=== PATIENT | male | born 1945 | race Caucasian/White ===

== ENCOUNTER 2017-09-25 12:55 | Inpatient (IN) | payer MEDICARE, MEDICAID ==
[~2017-09-25] VITALS: Ht 177.8 cm; Wt 106.3 kg
[~2017-09-25 12:55] MED LIST: HYDR-3240 PO; HYDR50TA3 PO; MULT-208 PO; PARO20TA98 PO; RISE150T3 PO
[2017-09-25] MEDS ORDERED: SODIUM CHLORIDE FLUSH 10ML SYR IVF ONE (13:30)
[2017-09-25] MEDS ORDERED: ATEN-104 PO (13:49)
[2017-09-25 14:00] LABS: BASOPHILS # (AUTO) 0.02 x10^3/uL (0-0.1); BASOPHILS % (AUTO) 0 % (0-1); EOSINOPHILS # (AUTO) 0.03 x10^3/uL (0-0.4); EOSINOPHILS % (AUTO) 0 % (1-7); LYMPHOCYTES # (AUTO) 0.42 x10^3/uL (1-3.4); LYMPHOCYTES % (AUTO) 4 % (22-44); MD NO; MEAN CORPUSCULAR HGB CONC 32.8 g/dL (33.2-36.2); MEAN CORPUSCULAR VOLUME 91.5 fL (81-97); MEAN PLATELET VOLUME 8.9 fL (7.4-10.4); MONOCYTES # (AUTO) 0.56 x10^3/uL (0.2-0.8); MONOCYTES % (AUTO) 6 % (2-9); NEUTROPHILS # (AUTO) 8.56 x10^3/uL (1.8-6.8); NEUTROPHILS % (AUTO) 89 % (42-75); PLATELET COUNT 196 x10^3/uL (130-400); RED BLOOD COUNT 4.78 x10^6/uL (4.38-5.82); RED CELL DISTRIBUTION WIDTH 15.3 % (9.4-14.8)
[2017-09-25] MEDS ORDERED: NITROGLYCERIN OINT 2%, 1GM TP ONE ×2 (14:00→15:21)
[2017-09-25 14:05] LABS: INTERNATIONAL NORMALIZED RATIO 1.16 (0.93-1.1); PROTHROMBIN TIME 11.9 Seconds (9.6-11.5)
[2017-09-25 14:10] LABS: ALANINE AMINOTRANSFERASE 18 U/L (12-78); ALBUMIN 3.8 g/dL (3.4-5.0); ANION GAP 8 mmol/L (5-15); CALCIUM 8.6 mg/dL (8.5-10.1); CHLORIDE 102 mmol/L (98-107); CREATININE 0.93 mg/dL (0.7-1.3)
[2017-09-25 14:14] LABS: ALKALINE PHOSPHATASE 95 U/L (45-117); BILIRUBIN,TOTAL 1.3 mg/dL (0.2-1.0); TOTAL PROTEIN 7.1 g/dL (6.4-8.2); TROPONIN I < 0.015 ng/mL (0.000-0.045)
[2017-09-25] MEDS ORDERED: FUROSEMIDE 20 MG/2 ML IV ONE (14:30)
[2017-09-25] MEDS ORDERED: FUROSEMIDE 20 MG/2 ML ONE (15:21)
[2017-09-25] MEDS ORDERED: LORazepam 2 MG/ML, 1ML ONE ×2 (15:38→22:12)
[2017-09-25] MEDS: LORazepam 2 MG/ML, 1ML IVPush PRN ×2 (15:43→22:18)
[2017-09-25] MEDS ORDERED: ONDANSETRON 2MG/ML, 2ML IVPush PRN (17:00)
[2017-09-25 19:17] LABS: TROPONIN I < 0.015 ng/mL (0.000-0.045)
[2017-09-25] MEDS ORDERED: ENOXAPARIN 40 MG/0.4 ML ONE (19:29)
[2017-09-25] MEDS ORDERED: PLEASE ENTER ALLERGIES MC SCH (19:30)
[2017-09-25] MEDS: ENOXAPARIN 40 MG/0.4 ML SQ SCH (19:40)
[2017-09-25] MEDS ORDERED: FUROSEMIDE 40 MG/4 ML ONE (22:12)
[2017-09-25] MEDS ORDERED: ACETAMINOPHEN 325 MG TABLET ONE (22:12)
[2017-09-25] MEDS: ACETAMINOPHEN 325 MG TABLET PO PRN (22:18)
[2017-09-25] MEDS: FUROSEMIDE 40 MG/4 ML IV SCH (22:18)
[2017-09-26 00:07] VITALS: BP 158/76
[2017-09-26 01:21] LABS: TROPONIN I < 0.015 ng/mL (0.000-0.045)
[2017-09-26 02:00] VITALS: BP 158/76
[2017-09-26] MEDS: FUROSEMIDE 40 MG/4 ML IV SCH ×4 (04:35→21:46)
[2017-09-26 07:39] VITALS: BP 128/65
[2017-09-26 07:47] LABS: ANION GAP 9 mmol/L (5-15); CALCIUM 8.8 mg/dL (8.5-10.1); CHLORIDE 100 mmol/L (98-107); CREATININE 0.96 mg/dL (0.7-1.3)
[2017-09-26 08:15] LABS: INTERNATIONAL NORMALIZED RATIO 1.19 (0.93-1.1); PROTHROMBIN TIME 12.2 Seconds (9.6-11.5)
[2017-09-26] MEDS ORDERED: LIDOCAINE 1%, 20ML ONE (08:16)
[2017-09-26] MEDS ORDERED: REGADENOSON 0.4 MG/5 ML SYRINGE ONE (08:57)
[2017-09-26] MEDS: ACETAMINOPHEN 325 MG TABLET PO PRN (11:23)
[2017-09-26] MEDS: PAROXETINE 20 MG TABLET PO SCH (11:23)
[2017-09-26 14:27] VITALS: BP 105/55
[2017-09-26] MEDS: ENOXAPARIN 40 MG/0.4 ML SQ SCH (16:01)
[2017-09-26 19:16] VITALS: BP 121/63
[2017-09-26] MEDS: MELATONIN 5 MG TABLET PO SCH (21:46)
[2017-09-27 01:19] VITALS: BP 129/68
[2017-09-27] MEDS: FUROSEMIDE 40 MG/4 ML IV SCH ×2 (04:52→11:57)
[2017-09-27 07:10] VITALS: BP 104/51
[2017-09-27 08:01] LABS: ANION GAP 7 mmol/L (5-15); CALCIUM 8.5 mg/dL (8.5-10.1); CHLORIDE 98 mmol/L (98-107); CREATININE 1.06 mg/dL (0.7-1.3)
[2017-09-27] MEDS: PAROXETINE 20 MG TABLET PO SCH (09:00)
[2017-09-27] MEDS: ENOXAPARIN 40 MG/0.4 ML SQ SCH (09:01)
[2017-09-27] MEDS: ACETAMINOPHEN 325 MG TABLET PO PRN ×2 (09:01→21:45)
[2017-09-27] MEDS ORDERED: MAGNESIUM OXIDE 400 MG TABLET PO ONE (09:30)
[2017-09-27 12:47] VITALS: BP 113/66
[2017-09-27 19:48] VITALS: BP 108/65
[2017-09-27] MEDS: MAGNESIUM OXIDE 400 MG TABLET PO SCH (21:45)
[2017-09-27] MEDS: MELATONIN 5 MG TABLET PO SCH (21:45)
[2017-09-28 01:42] VITALS: BP 108/70
[2017-09-28 07:19] VITALS: BP 121/66
[2017-09-28] MEDS: MAGNESIUM OXIDE 400 MG TABLET PO SCH (08:50)
[2017-09-28] MEDS: PAROXETINE 20 MG TABLET PO SCH (08:50)
[2017-09-28] MEDS ORDERED: FUROSEMIDE 40 MG/4 ML IV SCH (10:00)
[2017-09-28] MEDS: ACETAMINOPHEN 325 MG TABLET PO PRN (12:04)
[2017-09-28 12:17] VITALS: BP 118/69
[2017-09-28] MEDS ORDERED: FURO40TA6 PO (12:30)
[2017-09-28] MEDS ORDERED: ASPI-621 PO (13:01)
[2017-09-28] MEDS ORDERED: ACET325C PO (13:01)
[2017-09-28] MEDS: ENOXAPARIN 40 MG/0.4 ML SQ SCH (13:07)
== END 2017-09-28 18:00 | disposition home or self-care (01) | DRG 291 ==
LOC: ED 15:09 → EDIP 15:10 → ED 15:14 → 4WST 09-26 00:07
PROVIDERS: ADMIT Internal Medicine; ATTEND Internal Medicine
PROC: 0W993ZZ Drainage of Right Pleural Cavity, Percutaneous Approach (ICD-10-PCS; principal; 2017-09-26)
DX: I11.0 Hypertensive heart disease with heart failure (principal); J96.21 Acute and chronic respiratory failure with hypoxia; I48.91 Unspecified atrial fibrillation; J98.11 Atelectasis; I50.23 Acute on chronic systolic (congestive) heart failure; F32.9 Major depressive disorder, single episode, unspecified; I49.3 Ventricular premature depolarization; E66.9 Obesity, unspecified; Z68.33 Body mass index [BMI] 33.0-33.9, adult; Z79.82 Long term (current) use of aspirin
CPT/HCPCS: 32555; 36415; 71045; 71046; 78452; 80048; 80053; 83735; 83880; 84484; 85025; 85610; 93005; 93017; 93306; 96372; 96374; J1650; J1940; J2785; J3490; A9502; C9898; J2060

== ENCOUNTER 2018-04-20 12:35 | Inpatient (IN) | payer MEDICARE, MEDICAID ==
[~2018-04-20] VITALS: Ht 177.8 cm; Wt 93.8 kg
[~2018-04-20 12:35] MED LIST changes: +ACET325C PO; +ASPI-621 PO; +ATEN-104 PO; +FURO40TA6 PO
[2018-04-20 13:53] LABS: BASOPHILS # (AUTO) 0.01 x10^3/uL (0-0.1); BASOPHILS % (AUTO) 0 % (0-1); EOSINOPHILS # (AUTO) 0.08 x10^3/uL (0-0.4); EOSINOPHILS % (AUTO) 1 % (1-7); LYMPHOCYTES # (AUTO) 0.32 x10^3/uL (1-3.4); LYMPHOCYTES % (AUTO) 5 % (22-44); MD NO; MEAN CORPUSCULAR HEMOGLOBIN 31.2 pg (27.5-34.5); MEAN CORPUSCULAR HGB CONC 33.3 g/dL (33.2-36.2); MEAN CORPUSCULAR VOLUME 93.8 fL (81-97); MEAN PLATELET VOLUME 8.3 fL (7.4-10.4); MONOCYTES # (AUTO) 0.42 x10^3/uL (0.2-0.8); MONOCYTES % (AUTO) 7 % (2-9); NEUTROPHILS # (AUTO) 5.25 x10^3/uL (1.8-6.8); NEUTROPHILS % (AUTO) 87 % (42-75); PLATELET COUNT 239 x10^3/uL (130-400); RED BLOOD COUNT 4.23 x10^6/uL (4.38-5.82)
[2018-04-20] MEDS ORDERED: SODIUM CHLORIDE FLUSH 10ML SYR IVF ONE (14:00)
[2018-04-20 14:10] LABS: INTERNATIONAL NORMALIZED RATIO 1.03 (0.93-1.1); PROTHROMBIN TIME 10.7 Seconds (9.6-11.5)
[2018-04-20 14:20] LABS: ALANINE AMINOTRANSFERASE 15 U/L (12-78); ALBUMIN 3.1 g/dL (3.4-5.0); ANION GAP 8 mmol/L (5-15); CALCIUM 9.1 mg/dL (8.5-10.1); CHLORIDE 103 mmol/L (98-107)
[2018-04-20 14:24] LABS: ALKALINE PHOSPHATASE 82 U/L (45-117); BILIRUBIN,TOTAL 0.5 mg/dL (0.2-1.0); TOTAL PROTEIN 6.5 g/dL (6.4-8.2); TROPONIN I < 0.015 ng/mL (0.000-0.045)
[2018-04-20] MEDS ORDERED: OMNIPAQUE 350 MG/ML, 100ML BOTTLE ONE (14:56)
[2018-04-20 14:59] LABS: CULTURE INDICATED? YES; MICROSCOPIC INDICATED
[2018-04-20] MEDS ORDERED: LORazepam 2 MG/ML, 1ML IVPush ONE (15:38)
[2018-04-20] MEDS ORDERED: LORazepam 2 MG/ML, 1ML ONE (15:38)
[2018-04-20] MEDS ORDERED: ONDANSETRON 2MG/ML, 2ML IVPush PRN (17:00)
[2018-04-20] MEDS ORDERED: morphine SULFATE 10 MG/ML, 1ML IVPush PRN (17:00)
[2018-04-20] MEDS ORDERED: LABETALOL 5MG/ML, 20ML IVPush PRN (17:00)
[2018-04-20] MEDS ORDERED: LIDOCAINE-MPF 2%, 2ML ONE (17:16)
[2018-04-20 18:38] VITALS: BP 123/67
[2018-04-20] MEDS: ATENOLOL 50 MG TABLET PO SCH (20:16)
[2018-04-20 20:25] VITALS: BP 129/66
[2018-04-21 02:34] VITALS: BP 103/59
[2018-04-21 04:33] LABS: BASOPHILS # (AUTO) 0.03 x10^3/uL (0-0.1); BASOPHILS % (AUTO) 1 % (0-1); EOSINOPHILS # (AUTO) 0.14 x10^3/uL (0-0.4); EOSINOPHILS % (AUTO) 3 % (1-7); LYMPHOCYTES # (AUTO) 0.36 x10^3/uL (1-3.4); LYMPHOCYTES % (AUTO) 7 % (22-44); MD NO; MEAN CORPUSCULAR HEMOGLOBIN 30.9 pg (27.5-34.5); MEAN CORPUSCULAR HGB CONC 32.9 g/dL (33.2-36.2); MEAN CORPUSCULAR VOLUME 93.9 fL (81-97); MEAN PLATELET VOLUME 8.4 fL (7.4-10.4); MONOCYTES # (AUTO) 0.63 x10^3/uL (0.2-0.8); MONOCYTES % (AUTO) 13 % (2-9); NEUTROPHILS % (AUTO) 77 % (42-75); PLATELET COUNT 224 x10^3/uL (130-400); RED BLOOD COUNT 3.77 x10^6/uL (4.38-5.82); RED CELL DISTRIBUTION WIDTH 14.3 % (9.4-14.8)
[2018-04-21 04:46] LABS: ALANINE AMINOTRANSFERASE 11 U/L (12-78); ALBUMIN 2.6 g/dL (3.4-5.0); ANION GAP 6 mmol/L (5-15); CALCIUM 8.6 mg/dL (8.5-10.1); CHLORIDE 105 mmol/L (98-107)
[2018-04-21 04:48] LABS: ALKALINE PHOSPHATASE 72 U/L (45-117); BILIRUBIN,TOTAL 0.7 mg/dL (0.2-1.0); CREATININE 0.97 mg/dL (0.7-1.3); TOTAL PROTEIN 5.6 g/dL (6.4-8.2)
[2018-04-21 07:15] VITALS: BP 117/69
[2018-04-21] MEDS: CEFTRIAXONE 2,000 MG in SODIUM CHLORIDE 0.9% 50 ML IV SCH (08:32)
[2018-04-21] MEDS: PAROXETINE 20 MG TABLET PO SCH (08:32)
[2018-04-21] MEDS: FUROSEMIDE 20 MG/2 ML IV SCH ×2 (08:32→17:49)
[2018-04-21] MEDS: ATENOLOL 50 MG TABLET PO SCH ×2 (08:33→20:32)
[2018-04-21] MEDS: ASPIRIN 81 MG TABLET CHEW PO SCH (12:34)
[2018-04-21 14:19] VITALS: BP 96/57
[2018-04-21] MEDS: LORazepam 1MG TABLET PO PRN (18:03)
[2018-04-21 20:33] VITALS: BP 101/60
[2018-04-22 00:12] VITALS: BP 110/62
[2018-04-22 05:01] LABS: BASOPHILS # (AUTO) 0.01 x10^3/uL (0-0.1); BASOPHILS % (AUTO) 0 % (0-1); EOSINOPHILS # (AUTO) 0.24 x10^3/uL (0-0.4); EOSINOPHILS % (AUTO) 4 % (1-7); LYMPHOCYTES # (AUTO) 0.52 x10^3/uL (1-3.4); LYMPHOCYTES % (AUTO) 10 % (22-44); MD NO; MEAN CORPUSCULAR HEMOGLOBIN 30.5 pg (27.5-34.5); MEAN CORPUSCULAR HGB CONC 32.4 g/dL (33.2-36.2); MEAN CORPUSCULAR VOLUME 94.1 fL (81-97); MEAN PLATELET VOLUME 8.5 fL (7.4-10.4); MONOCYTES # (AUTO) 0.55 x10^3/uL (0.2-0.8); MONOCYTES % (AUTO) 10 % (2-9); NEUTROPHILS # (AUTO) 4.17 x10^3/uL (1.8-6.8); NEUTROPHILS % (AUTO) 76 % (42-75); PLATELET COUNT 222 x10^3/uL (130-400); RED BLOOD COUNT 3.76 x10^6/uL (4.38-5.82); RED CELL DISTRIBUTION WIDTH 14.1 % (9.4-14.8)
[2018-04-22 05:14] LABS: ALBUMIN 2.5 g/dL (3.4-5.0); ANION GAP 7 mmol/L (5-15); CALCIUM 8.4 mg/dL (8.5-10.1); CHLORIDE 102 mmol/L (98-107)
[2018-04-22 05:18] LABS: ALANINE AMINOTRANSFERASE 12 U/L (12-78); ALKALINE PHOSPHATASE 66 U/L (45-117); BILIRUBIN,TOTAL 0.5 mg/dL (0.2-1.0); CREATININE 1.16 mg/dL (0.7-1.3); TOTAL PROTEIN 5.5 g/dL (6.4-8.2)
[2018-04-22] MEDS: CEFTRIAXONE 2,000 MG in SODIUM CHLORIDE 0.9% 50 ML IV SCH (08:51)
[2018-04-22] MEDS: FUROSEMIDE 20 MG/2 ML IV SCH ×2 (08:51→18:24)
[2018-04-22 08:55] VITALS: BP 123/66
[2018-04-22 13:12] VITALS: BP 107/62
[2018-04-22] MEDS: PAROXETINE 20 MG TABLET PO SCH (13:55)
[2018-04-22] MEDS: ATENOLOL 50 MG TABLET PO SCH (14:05)
[2018-04-22] MEDS: ASPIRIN 81 MG TABLET CHEW PO SCH (14:11)
[2018-04-22] MEDS ORDERED: LIDOCAINE-MPF 2%, 2ML ONE (16:21)
[2018-04-22] MEDS: LORazepam 1MG TABLET PO PRN (18:13)
[2018-04-22 18:17] VITALS: BP 111/66
[2018-04-22] MEDS: ACETAMINOPHEN 325 MG TABLET PO PRN (20:26)
[2018-04-22 20:54] VITALS: BP 101/62
[2018-04-23 03:19] VITALS: BP 109/66
[2018-04-23 07:47] VITALS: BP_SYST 10; BP_SYST 103; BP_DIAS 61
[2018-04-23] MEDS: ATENOLOL 50 MG TABLET PO SCH ×2 (08:47→21:04)
[2018-04-23] MEDS: LORazepam 1MG TABLET PO PRN (08:47)
[2018-04-23] MEDS: CEFTRIAXONE 2,000 MG in SODIUM CHLORIDE 0.9% 50 ML IV SCH (08:47)
[2018-04-23] MEDS: ASPIRIN 81 MG TABLET CHEW PO SCH (08:47)
[2018-04-23] MEDS: PAROXETINE 20 MG TABLET PO SCH (08:47)
[2018-04-23] MEDS: FUROSEMIDE 20 MG/2 ML IV SCH (08:48)
[2018-04-23] MEDS ORDERED: LIDOCAINE-MPF 2%, 2ML ONE (09:19)
[2018-04-23] MEDS ORDERED: FLUMAZENIL 0.1 MG/1 ML, 5ML ONE (11:28)
[2018-04-23] MEDS ORDERED: NALOXONE 1 MG/ML, 2ML ONE (11:28)
[2018-04-23] MEDS ORDERED: FENTANYL PF 100 MCG/2ML ONE ×2 (11:28)
[2018-04-23] MEDS ORDERED: MIDAZOLAM 1 MG/ML, 5ML ONE (11:28)
[2018-04-23 14:03] VITALS: BP 98/61
[2018-04-23] MEDS: ACETAMINOPHEN 325 MG TABLET PO PRN ×2 (14:26→19:51)
[2018-04-23 19:45] VITALS: BP 123/67
[2018-04-24 01:32] VITALS: BP 118/62
[2018-04-24 04:35] LABS: BASOPHILS # (AUTO) 0.04 x10^3/uL (0-0.1); BASOPHILS % (AUTO) 1 % (0-1); EOSINOPHILS # (AUTO) 0.56 x10^3/uL (0-0.4); EOSINOPHILS % (AUTO) 9 % (1-7); LYMPHOCYTES # (AUTO) 0.41 x10^3/uL (1-3.4); LYMPHOCYTES % (AUTO) 7 % (22-44); MD NO; MEAN CORPUSCULAR HEMOGLOBIN 30.9 pg (27.5-34.5); MEAN CORPUSCULAR HGB CONC 32.8 g/dL (33.2-36.2); MEAN CORPUSCULAR VOLUME 94.4 fL (81-97); MEAN PLATELET VOLUME 8.6 fL (7.4-10.4); MONOCYTES # (AUTO) 0.61 x10^3/uL (0.2-0.8); MONOCYTES % (AUTO) 10 % (2-9); NEUTROPHILS # (AUTO) 4.58 x10^3/uL (1.8-6.8); NEUTROPHILS % (AUTO) 74 % (42-75); PLATELET COUNT 198 x10^3/uL (130-400); RED CELL DISTRIBUTION WIDTH 13.9 % (9.4-14.8)
[2018-04-24 04:52] LABS: CALCIUM 8.4 mg/dL (8.5-10.1); CHLORIDE 101 mmol/L (98-107)
[2018-04-24 04:58] LABS: ALANINE AMINOTRANSFERASE 11 U/L (12-78); ALBUMIN 2.5 g/dL (3.4-5.0); ALKALINE PHOSPHATASE 77 U/L (45-117); ANION GAP 5 mmol/L (5-15); BILIRUBIN,TOTAL 0.4 mg/dL (0.2-1.0); CREATININE 1.06 mg/dL (0.7-1.3); TOTAL PROTEIN 5.5 g/dL (6.4-8.2)
[2018-04-24] MEDS ORDERED: FUROSEMIDE 20 MG/2 ML IV SCH (07:30)
[2018-04-24 07:58] VITALS: BP 120/61
[2018-04-24] MEDS ORDERED: FUROSEMIDE 40 MG TABLET PO SCH (08:00)
[2018-04-24] MEDS ORDERED: POTASSIUM CHLORIDE 10 MEQ TABLET.ER PO SCH (08:00)
[2018-04-24] MEDS: LORazepam 1MG TABLET PO PRN (08:11)
[2018-04-24] MEDS: ATENOLOL 50 MG TABLET PO SCH (08:12)
[2018-04-24] MEDS: PAROXETINE 20 MG TABLET PO SCH (08:12)
[2018-04-24] MEDS: ASPIRIN 81 MG TABLET CHEW PO SCH (08:14)
[2018-04-24] MEDS ORDERED: CIPROFLOXACIN 500 MG TABLET PO SCH (09:00)
[2018-04-24] MEDS: ACETAMINOPHEN 325 MG TABLET PO PRN (10:37)
[2018-04-24 13:19] VITALS: BP 125/68
[2018-04-24] MEDS ORDERED: AMOX1TAB12 PO (14:31)
[2018-04-24] MEDS ORDERED: FURO40TA6 PO (14:31)
[2018-04-24] MEDS ORDERED: POTA10TA5 PO (14:31)
[2018-04-24] MEDS ORDERED: ASPI-515 PO (14:31)
[2018-04-24] MEDS ORDERED: CIPR500T87 PO (14:31)
[2018-04-24] MEDS ORDERED: ACET325T14 PO (14:31)
[2018-04-24] MEDS ORDERED: AMOXICILLIN/CLAV 875-125MG TABLET PO SCH (21:00)
== END 2018-04-24 16:30 | disposition home or self-care (01) | DRG 823 ==
LOC: ED 15:38 → EDIP 15:39 → ED 15:57 → 3NW 18:25 → DCLOUNGE 04-24 15:45
PROVIDERS: ADMIT Internal Medicine; ATTEND Internal Medicine
PROC: 0W9G3ZZ Drainage of Peritoneal Cavity, Percutaneous Approach (ICD-10-PCS; principal; 2018-04-20)
PROC: 0W993ZZ Drainage of Right Pleural Cavity, Percutaneous Approach (ICD-10-PCS; 2018-04-22)
PROC: 07BD3ZX Excision of Aortic Lymphatic, Percutaneous Approach, Diagnostic (ICD-10-PCS; 2018-04-23)
DX: C85.12 Unspecified B-cell lymphoma, intrathoracic lymph nodes (principal); K65.2 Spontaneous bacterial peritonitis; J96.01 Acute respiratory failure with hypoxia; R18.8 Other ascites; J98.11 Atelectasis; J90 Pleural effusion, not elsewhere classified; I11.0 Hypertensive heart disease with heart failure; K76.89 Other specified diseases of liver; I48.0 Paroxysmal atrial fibrillation; F32.9 Major depressive disorder, single episode, unspecified; E66.9 Obesity, unspecified; R59.9 Enlarged lymph nodes, unspecified; I50.9 Heart failure, unspecified; K59.00 Constipation, unspecified; Z80.52 Family history of malignant neoplasm of bladder; Z68.29 Body mass index [BMI] 29.0-29.9, adult; Z87.891 Personal history of nicotine dependence
CPT/HCPCS: 32555; 36415; 49083; 49180; 71045; 71250; 74177; 77012; 80053; 81001; 82042; 82150; 82945; 83615; 83690; 83880; 83986; 84157; 84484; 84550; 85025; 85610; 85730; 86704; 86706; 86708; 86803; 87040; 87070; 87075; 87086; 87102; 87205; 87340; 88112; 88184; 88185; 88305; 88341; 88342; 88360; 89051; 93005; 93306; 96374; 99156; 99157; 99285; G0378; J0696; J2250; J3010; J3490; Q9967; G0461; J1940; J2060; J2310